=== PATIENT | male | born 1950 | race Caucasian/White ===

== ENCOUNTER → 2017-04-27 | Outpatient (CLI) | payer OTHER ==
[~2017-04-27] MED LIST: Augmentin 875-1 EACH PO; BISA10S PR; CIPR500 PO; Cipro500 MG PO; DICL75ER PO; FLUT.05NI; Flagyl500 MG PO; Flonase 0.05% N16 GM; LANS15EC PO; LANS30EC PO; Levaquin750 MG PO; METR500 PO; Norco 10-325 T1 EACH PO; Percocet 5-3251 EACH PO; SMOOTHLAX17 GM PO; Zofran Odt4 MG PO; [UNRECOGNIZED DRUG - OTHER] AU
== END | disposition home or self-care (01) ==
LOC: LAB SHORT 11:49 → PLD 11:49
DX: L82.1 Other seborrheic keratosis (principal)
CPT/HCPCS: 88305

== ENCOUNTER 2018-07-18 07:56 | Day surgery (SDC) | payer OTHER ==
[~2018-07-18] VITALS: Ht 172.7 cm; Wt 68.7 kg
[~2018-07-18 07:56] MED LIST changes: +Melatonin5 MG SL; +Saw Palmetto160 MG PO
== END 2018-07-18 09:59 | disposition home or self-care (01) ==
LOC: ORSCSDS 07:56
PROVIDERS: Internal Medicine Gastroenterology
PROC: 0DBN8ZX Excision of Sigmoid Colon, Via Natural or Artificial Opening Endoscopic, Diagnostic (ICD-10-PCS; principal; 2018-07-18 09:00)
DX: R10.84 Generalized abdominal pain (principal); K63.5 Polyp of colon; Z86.010 Personal history of colon polyps; K57.30 Diverticulosis of large intestine without perforation or abscess without bleeding; K21.9 Gastro-esophageal reflux disease without esophagitis; Z79.899 Other long term (current) drug therapy
CPT/HCPCS: 88305; J0330; J1980; J2405; J7120

== ENCOUNTER → 2020-01-22 | Outpatient (CLI) | payer OTHER | END | disposition home or self-care (01) | LOC: PLD 13:50 → LAB SHORT 13:50 | DX: D03.59 Melanoma in situ of other part of trunk (principal) | CPT/HCPCS: 88305 ==

== ENCOUNTER → 2020-09-28 | Outpatient (CLI) | payer OTHER ==
[2020-09-28 13:46] LABS: BASOPHILS ABSOLUTE AUTO 0.04 K/mm3 (0.00-0.23); BASOPHILS PERCENT AUTO 1 % (0-2); EOSINOPHILS ABSOLUTE AUTO 0.71 K/mm3 (0.00-0.68); EOSINOPHILS PERCENT AUTO 13 % (0-6); Hematocrit 44.9 % (37.0-53.0); Hemoglobin 15.2 g/dL (13.5-17.5); IMMATURE GRAN ABSOLUTE AUTO 0.01 K/mm3 (0.00-0.10); IMMATURE GRAN PERCENT AUTO 0 % (0-1); LYMPHOCYTES ABSOLUTE AUTO 1.25 K/mm3 (0.84-5.20); LYMPHOCYTES PERCENT AUTO 24 % (21-46); MONOCYTES ABSOLUTE AUTO 0.45 K/mm3 (0.16-1.47); MONOCYTES PERCENT AUTO 8 % (4-13); Mean Corpuscular HGB 32.1 pg (26.0-34.0); Mean Corpuscular HGB Conc 33.9 g/dL (31.5-36.5); Mean Corpuscular Volume 95 fL (80-100); Mean Platelet Volume 11.3 fL (9.1-12.4); NEUTROPHILS ABSOLUTE AUTO 2.87 K/mm3 (1.96-9.15); NEUTROPHILS PERCENT AUTO 54 % (41-73); Platelet Count 256 K/mm3 (150-400); RDW Coefficient Variation 11.9 % (11.7-14.2); RDW Standard Deviation 41.3 fL (35.1-46.3); Red Blood Cell Count 4.74 M/mm3 (4.30-5.90); White Blood Cell Count 5.33 K/mm3 (4.00-11.30)
[2020-09-28 14:22] LABS: Alanine Aminotransfer (ALT/SGP 25 U/L (12-78); Albumin, Blood 3.7 g/dL (3.4-5.0); Albumin/Globulin Ratio 1.1 (0.8-1.8); Alk Phos 62 U/L (50-136); Anion Gap 4 mmol/L (6-16); Aspartate Aminotrans (AST/SGOT 17 U/L (12-37); Bilirubin, Total 0.7 mg/dL (0.1-1.0); Blood Urea Nitrogen 12 mg/dL (8-24); Bun/Creatinine Ratio 11.3 (12.0-20.0); CHOL/HDL RATIO 3.7; CO2, Blood 27 mmol/L (21-32); Calcium, Blood 8.8 mg/dL (8.5-10.1); Chloride, Blood 107 mmol/L (98-108); Cholesterol 231 mg/dL (50-200); Creatinine, Blood 1.06 mg/dL (0.60-1.20); Globulin, Blood 3.5 g/dL (2.2-4.0); Glomerular Filtration Rate >60 (60-); Glucose, Blood 95 mg/dL (70-99); HDL Cholesterol 63 mg/dL (>39); LDL/HDL RATIO 2.4; Low Density Lipoprotein Chol 153 mg/dL (0-110); Potassium, Blood 4.6 mmol/L (3.5-5.5); Sodium, Blood 138 mmol/L (136-145); Total Protein, Blood 7.2 g/dL (6.4-8.2); Triglycerides 75 mg/dL (30-160); Very Low Density Lipoprot Chol 15 mg/dL (6-32)
== END | disposition home or self-care (01) ==
LOC: LAB 12:29 → LAB SHORT 12:29
PROVIDERS: Family Medicine
DX: Z12.5 Encounter for screening for malignant neoplasm of prostate (principal); E78.2 Mixed hyperlipidemia; I10 Essential (primary) hypertension
CPT/HCPCS: 80053; 80061; 85025; G0103

== ENCOUNTER 2022-01-19 08:53 | Day surgery (SDC) | payer OTHER ==
[~2022-01-19] VITALS: Ht 172.7 cm; Wt 69.4 kg
[2022-01-19] MEDS ORDERED: Carisoprodol350 MG PO (09:35)
[2022-01-19] MEDS ORDERED: PRED1 PO (09:36)
[2022-01-19] MEDS ORDERED: CLARITHROMYCIN250 M1 (09:36)
--- NOTE | 2022-01-19 10:21 | NUR ---
01/19/22 1021 JAMAAL LOPEZ 5MLS OF LIDOCAINE 2% WITH EPI 1:100,000 MIXED WITH 5MLS OF INJECTABLE NS TO CREATE A LOCAL SOLUTION OF 10MLS LIDOCAINE 1% WITH EPI 1:200,000. DR. DIAMOND INJECTED LOCAL AT BEGINNING OF CASE AND DURING CASE.
--- NOTE | 2022-01-19 12:07 | NUR ---
01/19/22 1207 Dena Mcallister SUCTIONED ABOUT 5ML BLOOD FROM ORAL CAVITY.
--- NOTE | 2022-01-19 12:48 | NUR ---
01/19/22 1248 Dena Mcallister IS AT CHAIRSIDE. PT IS EATING CRACKERS AND DRINKING FLUIDS. NO COMPLAINTS OF PAIN OR NAUSEA.
== END 2022-01-19 13:41 | disposition home or self-care (01) ==
LOC: ORSCSDS 08:53
PROVIDERS: Otolaryngology
PROC: 8E09XBZ Computer Assisted Procedure of Head and Neck Region (ICD-10-PCS; principal; 2022-01-19 10:30)
PROC: 09DU4ZZ Extraction of Right Ethmoid Sinus, Percutaneous Endoscopic Approach (ICD-10-PCS; principal; 2022-01-19 10:30)
PROC: 09TL4ZZ Resection of Nasal Turbinate, Percutaneous Endoscopic Approach (ICD-10-PCS; principal; 2022-01-19 10:30)
PROC: 09DV4ZZ Extraction of Left Ethmoid Sinus, Percutaneous Endoscopic Approach (ICD-10-PCS; principal; 2022-01-19 10:30)
DX: J32.8 Other chronic sinusitis (principal); J33.9 Nasal polyp, unspecified; K21.9 Gastro-esophageal reflux disease without esophagitis; E78.00 Pure hypercholesterolemia, unspecified; Z79.899 Other long term (current) drug therapy
CPT/HCPCS: J0171; J1100; J2250; J2370; J2405; J2704; J2710; J3010